=== PATIENT | female | born 1955 | race Caucasian/White ===

== ENCOUNTER 2017-06-04 07:40 | Day surgery (SDC) | payer OTHER ==
[2017-06-04] MEDS ORDERED: FENTAnyl 50 MCG/ML VIAL (10:46)
[2017-06-04] MEDS ORDERED: MIDAZOLAM 1 MG/ML 2 ML INJ ×2 (10:46)
== END 2017-06-04 15:20 | disposition home or self-care (01) ==
LOC: GIL 07:40
DX: K29.70 Gastritis, unspecified, without bleeding (principal)
CPT/HCPCS: 43239; 82962; 88305; 88312

== ENCOUNTER 2017-07-19 07:19 | Day surgery (SDC) | payer OTHER ==
[~2017-07-19 07:19] MED LIST: CEFAZOLIN 1 GM/50 ML (PMX) 50 ML IVPB; GLYCOPYRROLATE 0.4 MG INJ; SOD CHLORIDE 0.9% 1,000 ML IV
[2017-07-19] MEDS ORDERED: BUPIVACAINE 0.25% (MPF) 30 ML INJ (09:05)
[2017-07-19] MEDS ORDERED: SUCCINYLCHOLINE CHLORIDE 100 MG/5 ML SYG IV (09:15)
[2017-07-19] MEDS ORDERED: PROPOFOL 20 ML (09:15)
[2017-07-19] MEDS ORDERED: MIDAZOLAM 1 MG/ML 2 ML INJ (09:16)
[2017-07-19] MEDS ORDERED: LIDOCAINE 1% (MDV) 20 ML INJ (09:16)
[2017-07-19] MEDS ORDERED: FAMOTIDINE 20 MG INJ (09:16)
[2017-07-19] MEDS ORDERED: FENTAnyl 50 MCG/ML VIAL (09:16)
[2017-07-19] MEDS ORDERED: METOCLOPRAMIDE 10 MG INJ (09:16)
[2017-07-19] MEDS ORDERED: ONDANSETRON 4 MG INJ (09:16)
[2017-07-19] MEDS: BUPIVACAINE 0.25% (MPF) 30 ML INJ INJ (09:50)
[2017-07-19] MEDS ORDERED: CEFAZOLIN 1 GM INJ (10:01)
[2017-07-19] MEDS: ONDANSETRON 4 MG INJ IV (10:26)
[2017-07-19] MEDS: LABETALOL HCL 20MG INJ IV (10:27)
[2017-07-19] MEDS ORDERED: LABETALOL HCL 20MG INJ IV (10:30)
[2017-07-19] MEDS ORDERED: HYDROmorphONE (0.2 MG/ML) 10ML SYG IV (10:30)
[2017-07-19] MEDS ORDERED: HYDROCODONE/APAP (5/325) TAB PO (10:30)
== END 2017-07-19 12:30 | disposition home or self-care (01) ==
LOC: SDS 07:19
DX: D17.21 Benign lipomatous neoplasm of skin and subcutaneous tissue of right arm (principal); E11.9 Type 2 diabetes mellitus without complications
CPT/HCPCS: 14021; 88307